=== PATIENT | female | born 1980 | race African-American/Black ===

== ENCOUNTER 2016-12-30 08:59 | Emergency (ER) | payer MEDICAID ==
[2016-12-30 09:00] VITALS: BP 131/58; PULSE 72; RESP 16; TEMP 98.1; O2SAT 99
[2016-12-30 09:19] VITALS: BP 114/66; PULSE 77; RESP 14; TEMP 98.9; O2SAT 100
[2016-12-30 09:45] LABS: BACTERIA, URINE RARE /hpf; BLOOD, URINE MOD (NEG); COMMENT (UR) CULT NOT INDICATED; CULTURE IF INDICATED CULT NOT INDICATED; GLUCOSE,URINE NEG (NEG); KETONE, URINE NEG (NEG); MUCUS URINE FEW /lpf (OCC); NITRITE,URINE NEG (NEG); SQUAMOUS EPITHELIAL CELL URINE 4 /hpf (0-5); URINE COLOR YELLOW (YELLW/STRAW)
[2016-12-30 10:06] LABS: AUTOMATED NEUTROPHIL # 1.2 TH/MM3 (1.8-7.7); EOSINOPHIL # 0.1 TH/MM3 (0-0.4); EOSINOPHIL % 1.7 % (0.0-4.0); HEMATOCRIT 35.6 % (35.0-46.0); HEMO FLAGS DIFF FINAL; LYMPH % 57.1 % (9.0-44.0); LYMPHOCYTE # 2.2 TH/MM3 (1.0-4.8); MEAN CELL VOLUME 81.8 FL (80.0-100.0); MEAN CORPUSCULAR HEMOGLOBIN 26.1 PG (27.0-34.0); MEAN CORPUSCULAR HGB CONC 31.9 % (32.0-36.0); MONO % 10.8 % (0.0-8.0); NEUT % 29.4 % (16.0-70.0); PLATELET COUNT 187 TH/MM3 (150-450); RED BLOOD COUNT 4.35 MIL/MM3 (4.00-5.30); RED CELL DISTRIBUTION WIDTH 15.2 % (11.6-17.2); WHITE BLOOD COUNT 3.9 TH/MM3 (4.0-11.0)
[2016-12-30 10:47] LABS: BETA HCG QUANT 35402 MIU/ML (0-5)
--- NOTE | 2016-12-30 12:20 | PD ---
HPI Chief Complaint: Manager Academic Problem/Complaint Time Seen by Provider: 09:27 Travel History International Travel<30 days: No Contact w/Intl Traveler<30days: No Traveled to known affect area: No History of Present Illness HPI Patient 36-year-old female presents emergency department with unknown gestational age for evaluation of superpubic pain and vaginal spotting. Patient states that she's been having symptoms for the past few days. Patient states she's been spotting when she wipes with paper towel. Symptoms are moderate. Gradually worsening. Denies any fever denies any nausea vomiting denies any diarrhea denies any dysuria. PFSH Past Medical History ?: Unknown Social History Alcohol Use: No Tobacco Use: No Substance Use: No Allergies-Medications (Allergen,Severity, Reaction): Coded Allergies: No Known Allergies (Unverified , 12/30/16) Reported Meds & Prescriptions Reported Meds & Active Scripts Active Complete 14-0.4 mg ( Vit W/ Ferrous Fumara) 1 Tab Tab 1 Tab PO DAILY Review of Systems Except as stated in HPI: all other systems reviewed are Neg Physical Exam Narrative GENERAL: Well-developed well-nourished crying after the news of her positive test was delivered. SKIN: Focused skin assessment warm/dry. HEAD: Atraumatic. Normocephalic. EYES: Pupils equal and round. No scleral icterus. No injection or drainage. ENT: No nasal bleeding or discharge. Mucous membranes pink and moist. NECK: Trachea midline. No JVD. CARDIOVASCULAR: Regular rate and rhythm. No murmur appreciated. RESPIRATORY: No accessory muscle use. Clear to auscultation. Breath sounds equal bilaterally. GASTROINTESTINAL: Abdomen soft, non-tender, nondistended. Hepatic and splenic margins not palpable. GENITOURINARY: Exam was performed with female nurse jack prizer present all times. There is some bleeding from the cervical os but the os is closed. No bimanual tenderness, no cervical lesion, no genitalia lesion. MUSCULOSKELETAL: No obvious deformities. No clubbing. No cyanosis. No edema. NEUROLOGICAL: Awake and alert. No obvious cranial nerve deficits. Motor grossly within normal limits. Normal speech. PSYCHIATRIC: Appropriate mood and affect; insight and judgment normal. Data Data Last Documented VS Vital Signs Date Time Temp Pulse Resp B/P Pulse Ox O2 Delivery O2 Flow Rate FiO2 12/30/16 13:27 67 14 110/71 100 12/30/16 09:19 98.9 Orders Urinalysis - C+S If Indicated (12/30/16 09:12) Ed Urine Pregnancytest Poc (12/30/16 09:12) Ed Poc Ultrasound (12/30/16 ) Abo/Rh Blood Type (12/30/16 09:38) Beta Hcg (Quant/Titer) (12/30/16 09:38) Complete Blood Count With Diff (12/30/16 09:38) Gc And Chlamydia Pcr (12/30/16 09:38) Wet Prep Profile (12/30/16 10:56) Us Pelvis (Ques Pr/Ect)W Trans (12/30/16 10:56) Labs Laboratory Tests Test 12/30/16 12/30/16 12/30/16 09:25 09:50 11:30 Urine Color YELLOW Urine Turbidity CLEAR Urine pH 6.0 Urine Specific Martin 1.020 Urine Protein NEG mg/dL Urine Glucose (UA) NEG mg/dL Urine Ketones NEG mg/dL Urine Occult Blood MOD Urine Nitrite NEG Urine Bilirubin NEG Urine Urobilinogen LESS THAN 2.0 MG/DL Urine Leukocyte Esterase TRACE Urine RBC LESS THAN 1 /hpf Urine WBC 3 /hpf Urine Squamous Epithelial 4 /hpf Cells Urine Bacteria RARE /hpf Urine Mucus FEW /lpf Microscopic Urinalysis Comment CULT NOT INDICATED White Blood Count 3.9 TH/MM3 Red Blood Count 4.35 MIL/MM3 Hemoglobin 11.3 GM/DL Hematocrit 35.6 % Mean Corpuscular Volume 81.8 FL Mean Corpuscular Hemoglobin 26.1 PG Mean Corpuscular Hemoglobin 31.9 % Concent Red Cell Distribution Width 15.2 % Platelet Count 187 TH/MM3 Mean Platelet Volume 8.1 FL Neutrophils (%) (Auto) 29.4 % Lymphocytes (%) (Auto) 57.1 % Monocytes (%) (Auto) 10.8 % Eosinophils (%) (Auto) 1.7 % Basophils (%) (Auto) 1.0 % Neutrophils # (Auto) 1.2 TH/MM3 Lymphocytes # (Auto) 2.2 TH/MM3 Monocytes # (Auto) 0.4 TH/MM3 Eosinophils # (Auto) 0.1 TH/MM3 Basophils # (Auto) 0.0 TH/MM3 CBC Comment DIFF FINAL Differential Comment Human Chorionic Gonadotropin, 48370 MIU/ML Quant Blood Type O POSITIVE Blood Bank Comment Clue Cells (Wet Prep) NONE SEEN Vaginal Trichomonas (Wet Prep) NONE SEEN Vaginal Yeast (Wet Prep) NONE SEEN MDM Medical Decision Making Medical Screen Exam Complete: Yes Emergency Medical Condition: Yes Differential Diagnosis Ectopic , threatened miscarriage, Rh mismatch, vaginal bleeding in early . Narrative Course Patient roomed in the emergency department, initial bedside ultrasound shows a thin structure removed from the wall of the uterus. There is a yolk sac present. Her beta Quant returns at 30,000 which is inconsistent with her ultrasound findings. Official ultrasound has been ordered: Last 24 hours Impressions Pelvis Ultrasound 12/30/16 1056 Signed Impressions: Service Date/Time: Friday, December 30, 2016 11:37 - CONCLUSION: 1. Findings suggesting a failed intrauterine . Gestational sac and pole are identified. Approximate gestational age by mean sac diameter is 7 weeks 6 days. No heart activity is identified. 2. Possible corpus luteum cyst in the right ovary. Eulalio Babcock MD Reviewed the images and it appears to be that the patient has a fairly large subchorionic hemorrhage consistent with an inevitable miscarriage. The patient is Rh+. Discussed with her symptomatic management and expect passage of products of conception with the next 24-48 hours. She is stable for discharge this time. Discussed with the patient her crying and offered my ear if she wanted to talk about anything and she declined. She states she is not currently in any pain and would like to go home. Diagnosis Primary Impression: Inevitable Additional Instructions: Recommend that you have a repeat blood work in 48 hours with or without an ultrasound. 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 Continue taking vitamins. Nothing in the vagina until after your repeat examination. Med/Other Pt SpecificInfo: Prescription(s) given Scripts Vit W/ Ferrous Fumara ( Complete 14-0.4 mg)1 Tab Tab1 Tab PO DAILY #30 Ref 9 Prov:Surya Correa MD 12/30/16 Disposition: 01 DISCHARGE HOME Condition: Stable Surya Correa MD Dec 30, 2016 12:20
--- NOTE | 2016-12-30 13:25 | RADRPT ---
EXAM DATE/TIME: 12/30/2016 11:37 [facility] COMPARISON: No previous studies available for comparison. INDICATIONS : Pelvic pain. LAB(S): Beta-hC,402 MEDICAL HISTORY : . SURGICAL HISTORY : None. ENCOUNTER: Initial ACUITY: 2 days PAIN SCORE: 5/10 LOCATION: Bilateral pelvis MEASUREMENTS: UTERUS: 8.4 x 7.2 x 6.7 cm ENDOMETRIAL STRIPE: 7 mm RIGHT OVARY: 4.1 x 2.3 x 2.8 cm LEFT OVARY: 2.2 x 2.5 x 2.1 cm FREE FLUID: No CROWN RUMP LENGTH: 6 mm = 6 WKS 3 DAYS FHR: 0 BPM FINDINGS: UTERUS: Gestational sac is seen within the uterus measuring 4.4 x 3.0 x 1.4 cm. Estimated age by mean sac vinicius meter is 7 weeks 6 days. pole is identified. Estimated age by crown-rump length is 6 weeks 3 da ys. No heart activity identified. Expanded amnion is noted. Collapsed yolk sac. RIGHT OVARY: Possible corpus luteum cyst in the right ovary measuring 1.9 cm. LEFT OVARY: Ovary contains no mass or significant cystic lesion. MISCELLANEOUS: No free fluid. CONCLUSION: 1. Findings suggesting a failed intrauterine . Gestational sac and pole are identified . Approximate gestational age by mean sac diameter is 7 weeks 6 days. No heart activity is iden tified. 2. Possible corpus luteum cyst in the right ovary. Eulalio Babcock MD on December 30, 2016 at 13:12 Board Certified Radiologist. This report was verified electronically.
[2016-12-30 13:27] VITALS: BP 110/71; PULSE 67; RESP 14; O2SAT 100
[2016-12-30] MEDS ORDERED: PRENTAB16 PO (13:39)
[2016-12-30 14:12] LABS: CHLAMYDIA PCR NOT DETECTED (NOT DETECT); NEISSERIA PCR NOT DETECTED (NOT DETECT)
== END 2016-12-30 13:59 | disposition home or self-care (01) ==
LOC: NEPD 08:59
DX: O03.9 Complete or unspecified spontaneous abortion without complication (principal); Z3A.01 Less than 8 weeks gestation of pregnancy
CPT/HCPCS: 76700; 76817; 81001; 84702; 84703; 85025; 86900; 86901; 87210; 87491; 87591

== ENCOUNTER 2017-08-08 11:31 | Emergency (ER) | payer OTHER ==
[~2017-08-08 11:31] MED LIST: PRENTAB16 PO
--- NOTE | 2017-08-08 13:55 | PD ---
HPI Chief Complaint headache, nose bleeding Date Seen: Aug 08, 2017 Travel History International Travel<30 Days: No Contact w/Intl Traveler<30Days: No History of Present Illness HPI Ms. Lyon is a 36 yo at ~21 weeks GA patient of Perla Reis who presents with recent nose bleeding and headaches. Patient reports that she has been having frequent nose bleeding since the end of May; it is gradually become more frequent over the past several months. Patient describes nose bleeding as "heavy bleeding" and "clots" which previously occurred every several days but now have occurred daily or every other day. Patient generally notices blood coming down the front of her nose but also recently noticed a down the back of her throat; patient has bleeding for approximately 10 minutes at a time before resolved spontaneously. Patient states that it can sometimes occur when she is upset. Patient does not have prior history of bleeding in her youth, family history of bleeding, or easy bleeding when she has a cut/abrasion. Patient is not aware of any previous lab abnormalities; she had labs obtained by Perla Reis but is not aware of results yet. Patient also reports recent headaches; she states that these occur either in the front and/or the back of her head. Headaches last for hours at a time until she takes Advil which alleviates them. Patient occasionally has visual blurriness but she states this is not frequent and she is not concerned by this. No associated nausea/vomiting. Patient does not report fever/chills, chest pain, shortness of breath, leg swelling, dysuria, abnormal bowel movements , vaginal bleeding, or abnormal vaginal discharge. Weeks Gestation: 21 Para: 2 : 4 History Past Medical History Narrative Medical No significant PMH Obstetric History Obstetric History 1 vaginal delivery ~17 yo ago 1 term vaginal delivery ~13 years ago Past Surgical History Surgical History: No Previous Surgery Family History Narrative Family History No FH of bleeding disorders Family History: Negative Social History Narrative Social History From [place] Alcohol Use: No Tobacco Use: No Substance Abuse: No Allergies-Medications (Allergen,Severity, Reaction): Coded Allergies: No Known Allergies (Unverified Allergy, Unknown, 08/08/17) Home Meds Active Scripts Vit W/ Ferrous Fumara ( Complete 14-0.4 mg) 1 Tab Tab, 1 TAB PO DAILY, #30 9 Refills Prov:Surya Correa MD 12/30/16 Review of Systems General / Constitutional: No: Fever, Chills Eyes: Blurred Vision (occasional) HENT: Headaches (nonspecific, frontal and posterior) Cardiovascular: No: Chest Pain or Discomfort Respiratory: No: Short of Breath Gastrointestinal: No: Nausea, Vomiting, Abdominal Pain Genitourinary: No: Urgency, Dysuria Skin: No Rash, No Itching Neurologic: No: Weakness, Dizziness Hematologic/Lymphatic: Other (frequent nose bleeding; no easy bleeding from cuts) Physical Exam BP 97/63 HR 79 RR 18 T 98.5 Narrative GENERAL: Well-nourished, well-developed patient. SKIN: Warm and dry. EYES: No scleral icterus. No injection or drainage. ENT: Throat clear. Nose- bilateral turbinate erythema; no signs of bleeding NECK: No thyromegaly or lymphadenopathy CARDIOVASCULAR: Regular rate and rhythm without murmurs. Normal peripheral perfusion RESPIRATORY: CTAB, normal rate. EXTREMITIES: No cyanosis or edema. BACK: Nontender without obvious deformity. No CVA tenderness. NEUROLOGICAL: Awake and alert. Motor and sensory function grossly within normal limits. ABDOMEN/GI: Abdomen soft, non-tender, bowel sounds present, no rebound, no guarding Gravid FHT's: FHR 130's Data Data Vital Signs Reviewed: Yes [facility] Medical Record Reviewed: Yes Plan 36 yo at ~21 weeks GA patient of Perla Reis who presents with recent nose bleeding and headaches -VSS (BP 97/63) -FHR 130's Assessment/Plan: Headaches Impression: Nonspecific symptoms lasting hours with associated headaches. Exam benign. No sinus symptoms and do not sound like migraines; suspect tension headaches -Patient counselled to no longer use Advil during ; she agrees to use Tylenol PRN for headaches Nosebleeding Impression: No PMH of easy bleedin or FH of bleeding disorder. Nose with mild turbinate erythema but otherwise unremarkable exam -Will obtain labs from Perla Reis to check for any platelet disorder as well as assess Hgb Interval: labs reviewed- hemoglobin 10.4, platelets 209. O+ blood, antibody negative. Hep B, HIV, syphilis negative Updated plan: Discussed with patient that due to reassuring lab profile with reassuring hemoglobin and platelet count, patient likely does not have obvious bleeding disorder or other abnormality. Suspect that frequent nosebleeds due to physiologic changes of . We'll prescribe patient ferrous sulfate 325 mg daily due to mild anemia (Hgb <10.5). Patient will follow-up with Perla Reis in approximately 1 week. Patient instructed that if she has persisting concerns regarding nosebleeds, further evaluation such as coagulation studies could be ordered at that time Diagnosis Diagnosis: Primary Impression: Nosebleed Additional Impression: Headache Disposition: 01 DISCHARGE HOME Condition: Stable Scripts Ferrous Sulfate (Ferrous Sulfate) 325 Mg (65 Mg Iron) Tablet 325 MG PO DAILY for Nutritional Supplement, #30 TAB 0 Refills Prov: Casey Syed MD, R3 08/08/17 Patient Instructions: General Instructions Casey Syed MD, R3 Aug 08, 2017 13:55
[2017-08-08] MEDS ORDERED: ACETAMINOPHEN 325 MG TAB PO PRN (15:00)
[2017-08-08] MEDS ORDERED: FERR325T18 PO (15:21)
[2017-08-08 15:35] VITALS: RESP 18
== END 2017-08-08 15:57 | disposition home or self-care (01) ==
LOC: HOBED 11:31
DX: O26.892 Other specified pregnancy related conditions, second trimester (principal); O99.012 Anemia complicating pregnancy, second trimester; R51 Headache; R04.0 Epistaxis; Z3A.21 21 weeks gestation of pregnancy
CPT/HCPCS: 99283

== ENCOUNTER 2017-09-12 09:55 | Emergency (ER) | payer OTHER ==
[~2017-09-12 09:55] MED LIST changes: +FERR325T18 PO
[2017-09-12 09:56] VITALS: BP 105/66; PULSE 75; RESP 18; TEMP 98.5; O2SAT 100
--- NOTE | 2017-09-12 10:29 | PD ---
HPI Chief Complaint: ENT Complaint Time Seen by Provider: 10:24 Travel History International Travel<30 days: No Contact w/Intl Traveler<30days: No Traveled to known affect area: No History of Present Illness HPI 36-year-old female presents for evaluation of left ear pain. Symptoms started 4 days ago. She reports an aching pain in her left ear with associated foreign body sensation. She believes that a bug may have gotten into her left ear. She tried washing out with water but symptoms persist which prompted evaluation. Denies any drainage, cough, congestion, sore throat, recent swimming, recent travel. No other complaints at this time. PFSH Past Medical History ?: LMP: 03/14/17 Social History Alcohol Use: No Tobacco Use: No Substance Use: No Allergies-Medications (Allergen,Severity, Reaction): Coded Allergies: No Known Allergies (Unverified Allergy, Unknown, 08/08/17) Reported Meds & Prescriptions Reported Meds & Active Scripts Active Ofloxacin Otic Drops 0.3 % Drops 10 Drop LEFT EAR DAILY 7 Days Debrox Otic Drops (Carbamide Peroxide Otic Drops) 6.5% Soln 5-10 Drop LEFT EAR BID PRN 4 Days up to 4 days. Ferrous Sulfate 325 Mg (65 Mg Iron) Tablet 325 Mg PO DAILY Complete 14-0.4 mg ( Vit W/ Ferrous Fumara) 1 Tab Tab 1 Tab PO DAILY Review of Systems General / Constitutional: No: Fever, Chills HENT: Positive: Earache, No: Sore Throat, Rhinitis, Rhinorrhea, Ear Discharge Respiratory: No: Cough Physical Exam Narrative GENERAL: Well-developed well-nourished female in no acute distress SKIN: Warm and dry. HEAD: Atraumatic. Normocephalic. EYES: Pupils equal and round. No scleral icterus. No injection or drainage. ENT: No nasal bleeding or discharge. Mucous membranes pink and moist. Large amount of cerumen noted in the left ear be securing the view of the tympanic membrane and most of the external ear canal. By contrast the right tympanic membrane appears normal without erythema or fluid level. NECK: Trachea midline. No JVD. CARDIOVASCULAR: Regular rate and rhythm. No murmur appreciated. RESPIRATORY: No accessory muscle use. Clear to auscultation. Breath sounds equal bilaterally. Data Data Last Documented VS Vital Signs Date Time Temp Pulse Resp B/P (MAP) Pulse Ox O2 Delivery O2 Flow Rate FiO2 09/12/17 09:56 98.5 75 18 105/66 (79) 100 Room Air Orders Orders Ear Irrigation (09/12/17 10:24) Ed Discharge Order (09/12/17 11:09) [facility] Medical Decision Making Medical Screen Exam Complete: Yes Emergency Medical Condition: Yes Medical Record Reviewed: Yes Differential Diagnosis Cerumen impaction, foreign body, otitis externa, otitis media Narrative Course Attempts were made at irrigating the left ear with a mixture of hydrogen peroxide and warm water. A small cerumen was irrigated out however her continues to be a deep cerumen impaction. There does appears to be some erythema of the external ear canal hoang but no evidence of foreign body. The patient will be discharged with Debrox as well as ofloxacin otic solution prescriptions. Recommended recheck in one week with primary care physician. Diagnosis Primary Impression: Impacted cerumen of left ear Additional Instructions: Medication as prescribed. Follow-up in one week with primary care physician for recheck. Return for any emergent medical conditions. Med/Other Pt SpecificInfo: Prescription(s) given Scripts Ofloxacin Otic Drops (Ofloxacin Otic Drops) 0.3 % Drops 10 DROP LEFT EAR DAILY for Infection for 7 Days, #1 BOTTLE 0 Refills Prov: Jason Nunes MD 09/12/17 Carbamide Peroxide Otic Drops (Debrox Otic Drops) 6.5% Soln 5-10 DROP LEFT EAR BID Y for Ear Wax Removal for 4 Days, #1 BOTTLE 0 Refills up to 4 days. Prov: Jason Nunes MD 09/12/17 Disposition: 01 DISCHARGE HOME Condition: Stable Sudarshan Avalos Sep 12, 2017 10:28
[2017-09-12] MEDS ORDERED: OFLO0.3D9 LEFT EAR (10:48)
[2017-09-12] MEDS ORDERED: CARB6.5S5 LEFT EAR (10:48)
== END 2017-09-12 11:32 | disposition home or self-care (01) ==
LOC: NEPK 09:55
DX: H61.22 Impacted cerumen, left ear (principal)
CPT/HCPCS: 99283